=== PATIENT | male | born 1990 | race Caucasian/White ===

== ENCOUNTER 2021-06-06 04:05 | Emergency (ER) | payer OTHER ==
[~2021-06-06] VITALS: Ht 177.8 cm; Wt 72.6 kg
[2021-06-06 04:20] VITALS: BP 142/90
[2021-06-06] MEDS ORDERED: HYDROcodone/APAP 10/325 MG 1 TAB TAB PO STA (04:49)
[2021-06-06] MEDS ORDERED: ACETAMINOPHEN EXTRA STRENGTH 500 MG TAB PO ONE (05:10)
[2021-06-06] MEDS ORDERED: IBUPROFEN 600 MG TAB PO ONE (05:10)
[2021-06-06 06:27] VITALS: BP 142/90
== END 2021-06-06 06:27 | disposition home or self-care (01) ==
LOC: MED 04:05
DX: S02.2XXA Fracture of nasal bones, initial encounter for closed fracture (principal); Y04.2XXA Assault by strike against or bumped into by another person, initial encounter; Y93.89 Activity, other specified; Y92.89 Other specified places as the place of occurrence of the external cause; Y99.8 Other external cause status
CPT/HCPCS: 70486; 99284